=== PATIENT | female | born 1970 | race Caucasian/White ===

== ENCOUNTER 2017-02-04 10:18 | Inpatient (IN) | payer BC, OTHER ==
[2017-02-04] VITALS (12 sets, daily range): BP systolic 124–148; BP diastolic 66–95; PULSE 82–124; RESP 15–18; TEMP 97–97.9; O2SAT 95–100
[~2017-02-04] VITALS: Ht 170.2 cm; Wt 99.0 kg
[2017-02-04] MEDS ORDERED: SODIUM CHLORIDE 0.9% FLUSH 10 ML FLUSH IVF PRN ×2 (11:00→13:00)
[2017-02-04] MEDS ORDERED: SODIUM CHLOR 0.9% 1000 ML INJ 1,000 ML IV ONE (11:15)
[2017-02-04 11:30] LABS: AUTOMATED NEUTROPHIL # 4.3 TH/MM3 (1.8-7.7); BASOPHIL # 0.1 TH/MM3 (0-0.2); BASOPHIL % 1.1 % (0.0-2.0); EOSINOPHIL # 0.1 TH/MM3 (0-0.4); EOSINOPHIL % 1.1 % (0.0-4.0); HEMATOCRIT 36.5 % (35.0-46.0); LYMPH % 33.6 % (9.0-44.0); LYMPHOCYTE # 2.5 TH/MM3 (1.0-4.8); MEAN CELL VOLUME 95.1 FL (80.0-100.0); MEAN CORPUSCULAR HEMOGLOBIN 32.3 PG (27.0-34.0); NEUT % 57.2 % (16.0-70.0); PLATELET COUNT 270 TH/MM3 (150-450); RED BLOOD COUNT 3.83 MIL/MM3 (4.00-5.30); RED CELL DISTRIBUTION WIDTH 18.2 % (11.6-17.2); WHITE BLOOD COUNT 7.6 TH/MM3 (4.0-11.0)
--- NOTE | 2017-02-04 11:31 | PD ---
HPI Chief Complaint: OD/ Ingestion Time Seen by Provider: 11:02 Travel History International Travel<30 days: No Contact w/Intl Traveler<30days: No Traveled to known affect area: No History of Present Illness HPI 47-year-old female patient with history of suicidal attempts, presents to the ER today by EMS because she had taken 25 Tylenol PMs, 15 Librium, and an attempt to kill herself. Had drank alcohol as well. She has been [place] acted by PD, apparently has had previous attempts. She had stated that this was the only way she knew to help. She is currently fairly disoriented, not able to give any further history. Modifying Factors: None Associated Signs & Symptoms: Intentional overdose of Tylenol PM's in Librium Risk Factors: Previous suicidal attempts PFSH Past Medical History Medical History: Unable to Obtain Anxiety: Yes Depression: Yes Cancer: No Cardiovascular Problems: No Diminished Hearing: No Endocrine: No Genitourinary: No Immune Disorder: No Musculoskeletal: No Neurologic: No Psychiatric: Yes Reproductive: No Respiratory: No ?: Unknown Menopausal: Yes : 6 Para: 5 Miscarriage: 0 : 1 Past Surgical History Surgical History: Unable to Obtain Social History Alcohol Use: Yes (Daily - 2 bottles of wine) Tobacco Use: No Substance Use: Yes (alcohol) Allergies-Medications (Allergen,Severity, Reaction): Coded Allergies: No Known Allergies (Unverified Adverse Reaction, Unknown, 02/04/17) Reported Meds & Prescriptions Reported Meds & Active Scripts Active Active Prescriptions or Reported Medications Unobtainable Review of Systems ROS Limitations: Altered Mental Status Physical Exam Narrative GENERAL: Well-developed middle age female patient who is currently in moderate distress, disoriented, lethargic. SKIN: Focused skin assessment warm/dry. HEAD: Atraumatic. Normocephalic. EYES: Pupils equal and round, 2 mm and poorly reactive to light bilaterally. No scleral icterus. No injection or drainage. ENT: No nasal bleeding or discharge. Mucous membranes pink and moist. NECK: Trachea midline. No JVD. CARDIOVASCULAR: Regular rate and rhythm. No murmur appreciated. RESPIRATORY: No accessory muscle use. Clear to auscultation. Breath sounds equal bilaterally. GASTROINTESTINAL: Abdomen soft, non-tender, nondistended. Hepatic and splenic margins not palpable. MUSCULOSKELETAL: No obvious deformities. No clubbing. No cyanosis. No edema. NEUROLOGICAL: Lethargic. Not following commands. Slurred speech. PSYCHIATRIC: Lethargic; insight and judgment poor. Data Data Last Documented VS Vital Signs Date Time Temp Pulse Resp B/P (MAP) Pulse Ox O2 Delivery O2 Flow Rate FiO2 02/04/17 11:39 124 16 146/77 (100) 100 2.00 02/04/17 10:38 97.9 Orders Orders Electrocardiogram (02/04/17 10:57) Complete Blood Count With Diff (02/04/17 10:57) Comprehensive Metabolic Panel (02/04/17 10:57) Iv Access Insert/Monitor (02/04/17 10:57) Ecg Monitoring (02/04/17 10:57) Oximetry (02/04/17 10:57) Psych Screen (02/04/17 10:57) Sodium Chloride 0.9% Flush (Ns Flush) (02/04/17 11:00) Call Poison Control (02/04/17 10:57) Drug Screen, Random Urine (02/04/17 10:57) Alcohol (Ethanol) (02/04/17 10:57) Salicylates (Aspirin) (02/04/17 10:57) Tylenol (Acetaminophen) (02/04/17 10:57) Sodium Chlor 0.9% 1000 Ml Inj (Ns 1000 M (02/04/17 11:15) Prothrombin Time / Inr (Pt) (02/04/17 11:36) Act Partial Throm Time (Ptt) (02/04/17 11:36) Labs Laboratory Tests Test 02/04/17 11:00 02/04/17 12:05 White Blood Count 7.6 TH/MM3 Red Blood Count 3.83 MIL/MM3 Hemoglobin 12.4 GM/DL Hematocrit 36.5 % Mean Corpuscular Volume 95.1 FL Mean Corpuscular Hemoglobin 32.3 PG Mean Corpuscular Hemoglobin Concent 34.0 % Red Cell Distribution Width 18.2 % Platelet Count 270 TH/MM3 Mean Platelet Volume 7.2 FL Neutrophils (%) (Auto) 57.2 % Lymphocytes (%) (Auto) 33.6 % Monocytes (%) (Auto) 7.0 % Eosinophils (%) (Auto) 1.1 % Basophils (%) (Auto) 1.1 % Neutrophils # (Auto) 4.3 TH/MM3 Lymphocytes # (Auto) 2.5 TH/MM3 Monocytes # (Auto) 0.5 TH/MM3 Eosinophils # (Auto) 0.1 TH/MM3 Basophils # (Auto) 0.1 TH/MM3 CBC Comment AUTO DIFF Differential Comment AUTO DIFF CONFIRMED Blood Urea Nitrogen 10 MG/DL Creatinine 0.54 MG/DL Random Glucose 76 MG/DL Total Protein 7.6 GM/DL Albumin 3.1 GM/DL Calcium Level 7.6 MG/DL Alkaline Phosphatase 64 U/L Aspartate Amino Transf (AST/SGOT) 32 U/L Alanine Aminotransferase (ALT/SGPT) 34 U/L Total Bilirubin 0.3 MG/DL Sodium Level 137 MEQ/L Potassium Level 3.8 MEQ/L Chloride Level 108 MEQ/L Carbon Dioxide Level 18.0 MEQ/L Anion Gap 11 MEQ/L Estimat Glomerular Filtration Rate 120 ML/MIN Salicylates Level LESS THAN 1.7 MG/DL Urine Opiates Screen NEG Acetaminophen Level 87.5 MCG/ML Urine Barbiturates Screen NEG Urine Amphetamines Screen NEG Urine Benzodiazepines Screen NEG Urine Cocaine Screen NEG Urine Cannabinoids Screen NEG Ethyl Alcohol Level 289 MG/DL Prothrombin Time 10.2 SEC Prothromb Time International Ratio 1.0 RATIO Activated Partial Thromboplast Time 24.7 SEC MDM Medical Decision Making Medical Screen Exam Complete: Yes Emergency Medical Condition: Yes Medical Record Reviewed: Yes Interpretation(s) Laboratory Tests Test 02/04/17 11:00 02/04/17 12:05 Red Blood Count 3.83 MIL/MM3 (4.00-5.30) Red Cell Distribution Width 18.2 % (11.6-17.2) Albumin 3.1 GM/DL (3.4-5.0) Calcium Level 7.6 MG/DL (8.5-10.1) Chloride Level 108 MEQ/L (98-107) Carbon Dioxide Level 18.0 MEQ/L (21.0-32.0) Salicylates Level LESS THAN 1.7 MG/DL Acetaminophen Level 87.5 MCG/ML (10.0-30.0) Ethyl Alcohol Level 289 MG/DL (0-5) Differential Diagnosis Intentional overdose of Tylenol PM and Librium, alcohol use, rule out coingestions versus metabolic issues Narrative Course Lab work did not show significant metabolic issues. She has elevated alcohol levels. It is unclear what time she had taken the medications. Her Tylenol levels are elevated. Case was discussed with poison control and they will follow along. At this point, my plan would be to admit the patient for further treatment. Case was discussed with family practice resident service for admission. Diagnosis Primary Impression: Intentional overdose of drug in tablet form Admitting Information Admitting Physician Requests: Admit Scripts Unable to Obtain Active Prescriptions or Reported Meds Noam Jung MD Feb 04, 2017 11:31
[2017-02-04 11:38] LABS: HEMO FLAGS AUTO DIFF
[2017-02-04 11:41] LABS: ALCOHOL 289 MG/DL (0-5); ALT (GPT) 34 U/L (10-53); ANION GAP 11 MEQ/L (5-15); AST (GOT) 32 U/L (15-37); BLOOD UREA NITROGEN 10 MG/DL (7-18); CHLORIDE 108 MEQ/L (98-107); GLOMERULAR FILTRATION RATE 120 ML/MIN (>89); POTASSIUM 3.8 MEQ/L (3.5-5.1); SODIUM (NA) 137 MEQ/L (136-145)
[2017-02-04 11:42] LABS: ACETAMINOPHEN 87.5 MCG/ML (10.0-30.0); ALKALINE PHOSPHATASE 64 U/L (45-117); TOTAL BILIRUBIN ADULT 0.3 MG/DL (0.2-1.0)
[2017-02-04 12:08] LABS: SCAN/DIFF AUTO DIFF CONFIRMED
[2017-02-04 12:29] LABS: APTT (PATIENT) 24.7 SEC (24.3-30.1); PROTHROMBIN TIME - PATIENT 10.2 SEC (9.8-11.6)
[2017-02-04] MEDS ORDERED: ACETYLCYSTEINE INJ 15,000 MG in DEXTROSE 5% IN WATER INJ 200 ML IV SCH ×2 (13:00)
[2017-02-04] MEDS ORDERED: ACETYLCYSTEINE INJ 5,000 MG in DEXTROSE 5% IN WATE 500 ML INJ 500 ML IV SCH ×2 (14:00)
--- NOTE | 2017-02-04 14:09 | HHI.FPPN ---
Subjective Remarks Pt. seen and examined and discussed with the Med team. this is a 47 yo female who has hx of attempted suicides who reportedly drinks 2 bottles of wine daily. She apparently took Tylenol PM #25, librium and called the police for help. Evac was called and she was transported to [facility]. She is awake but unable to speak with us; when asked if she has pain she points to her head. Otherwise verbally nonresponsive although her eyes are open; she will shake or nod her head occasionally. Objective Vitals Vital Signs Date Time Temp Pulse Resp B/P (MAP) Pulse Ox O2 Delivery O2 Flow Rate FiO2 02/04/17 13:21 111 16 124/66 (85) 100 Nasal Cannula 2.00 02/04/17 11:39 124 16 146/77 (100) 100 2.00 02/04/17 10:38 97.9 111 15 148/95 (112) 95 Result Diagram: 02/04/17 1100 02/04/17 1100 Other Results Laboratory Tests Test 02/04/17 11:00 02/04/17 12:05 White Blood Count 7.6 TH/MM3 Red Blood Count 3.83 MIL/MM3 Hemoglobin 12.4 GM/DL Hematocrit 36.5 % Mean Corpuscular Volume 95.1 FL Mean Corpuscular Hemoglobin 32.3 PG Mean Corpuscular Hemoglobin Concent 34.0 % Red Cell Distribution Width 18.2 % Platelet Count 270 TH/MM3 Mean Platelet Volume 7.2 FL Neutrophils (%) (Auto) 57.2 % Lymphocytes (%) (Auto) 33.6 % Monocytes (%) (Auto) 7.0 % Eosinophils (%) (Auto) 1.1 % Basophils (%) (Auto) 1.1 % Neutrophils # (Auto) 4.3 TH/MM3 Lymphocytes # (Auto) 2.5 TH/MM3 Monocytes # (Auto) 0.5 TH/MM3 Eosinophils # (Auto) 0.1 TH/MM3 Basophils # (Auto) 0.1 TH/MM3 CBC Comment AUTO DIFF Differential Comment AUTO DIFF CONFIRMED Blood Urea Nitrogen 10 MG/DL Creatinine 0.54 MG/DL Random Glucose 76 MG/DL Total Protein 7.6 GM/DL Albumin 3.1 GM/DL Calcium Level 7.6 MG/DL Alkaline Phosphatase 64 U/L Aspartate Amino Transf (AST/SGOT) 32 U/L Alanine Aminotransferase (ALT/SGPT) 34 U/L Total Bilirubin 0.3 MG/DL Sodium Level 137 MEQ/L Potassium Level 3.8 MEQ/L Chloride Level 108 MEQ/L Carbon Dioxide Level 18.0 MEQ/L Anion Gap 11 MEQ/L Estimat Glomerular Filtration Rate 120 ML/MIN Salicylates Level LESS THAN 1.7 MG/DL Urine Opiates Screen NEG Acetaminophen Level 87.5 MCG/ML Urine Barbiturates Screen NEG Urine Amphetamines Screen NEG Urine Benzodiazepines Screen NEG Urine Cocaine Screen NEG Urine Cannabinoids Screen NEG Ethyl Alcohol Level 289 MG/DL Prothrombin Time 10.2 SEC Prothromb Time International Ratio 1.0 RATIO Activated Partial Thromboplast Time 24.7 SEC Imaging O. CONSTITUTIONAL/GEN: normally nourished, in NAD. Awake, eyes open, not responding verbally. EYES: conjunctiva normal, pupils equal but minimally responsive, sclerae nonicteric. ENT: Mouth and pharynx normal. NECK: no palpable mass LUNGS: clear A-P, respiratory effort is normal. CARDIOVASCULAR: RR without murmur or gallop. No significant edema. GI/ABD: BS +, palpable bladder vs uterus to just below umbilicus (pt. was recently incontinent of a large amount of urine). SKIN: color normal, no rashes noted. HEME/LYMPH: no bruising, petechia or significant adenopathy MUSC: Extremities are normal in appearance. PSYCH/MENTAL STATUS: Eyes open, nonverbal. A/P Assessment and Plan Repeat suicide attempt in a 47 yo female. See orders. Attending Attestation Patient seen and examined. Case reviewed and discussed with the resident team. Agree with plan of care as discussed with me and documented in the resident note. Archana Orozco MD Feb 04, 2017 14:09
[2017-02-04] MEDS ORDERED: NALOXONE HCL 0.4 MG/ML AMP IV PUSH PRN (14:15)
[2017-02-04] MEDS ORDERED: BISACODYL 10 MG SUPP RECTAL PRN (14:15)
[2017-02-04] MEDS ORDERED: MAGNESIUM HYDROXIDE SUSP 30 ML CUP PO PRN (14:15)
[2017-02-04] MEDS ORDERED: SENNOSIDES 8.6 MG TAB PO PRN (14:15)
[2017-02-04] MEDS ORDERED: SODIUM CHLORIDE 0.9% FLUSH 10 ML FLUSH IV FLUSH PRN (14:15)
[2017-02-04] MEDS ORDERED: LACTULOSE SYRUP 20 GM/30 ML CUP PO PRN (14:15)
--- NOTE | 2017-02-04 14:53 | HHI.HP ---
[facility] Service Family Medicine Primary Care Physician No Primary Care Physician Admission Diagnosis intentional overdose/alcohol intoxication/BA Diagnoses: International Travel<30 Days: No Contact w/Intl Traveler<30days: No Known Affected Area: No History of Present Illness 47 yr old F with history of adjustment disorder with mixed features and previous suicidal attempt, presents to the ED via EMS for drug overdose. History is limited due to patient's current condition. She is moderately disoriented and unable to answer any questions. She is able to tell me her name and answers a few yes/no questions. Per ED note, patient took 25 Tylenol PMs, 15 Librium, and drank alcohol (1-2bottles of wine) in an attempt to kill herself. She called 911 after taking these meds and wanted to receive help. She endorses some abdominal pain. Will attempt to clarify history tomorrow when patient is fully awake and alert. (Daniela Dorman MD R1) Review of Systems Other Limited due to patient's condition (Daniela Dorman MD R1) Past Family Social History Past Medical History Adjustment disorder w/ mixed features Suicide attempt in 2012 Past Surgical History None (Daniela Dorman MD R1) Allergies: Coded Allergies: No Known Allergies (Unverified Allergy, Unknown, 02/04/17) Family History Unable to obtain Social History Unable to obtain (Daniela Dorman MD R1) Physical Exam Vital Signs Vital Signs Date Time Temp Pulse Resp B/P (MAP) Pulse Ox O2 Delivery O2 Flow Rate FiO2 02/04/17 13:21 111 16 124/66 (85) 100 Nasal Cannula 2.00 02/04/17 11:39 124 16 146/77 (100) 100 2.00 02/04/17 10:38 97.9 111 15 148/95 (112) 95 Physical Exam GENERAL: lying uncomfortably in bed, lethargic, in NAD SKIN: No rashes, ecchymoses or lesions. Cool and dry. HEAD: Atraumatic. Normocephalic. No temporal or scalp tenderness. EYES: PERRLA. Extraocular motions intact. No scleral icterus. No injection or drainage. ENT: Nose without bleeding, purulent drainage or septal hematoma. Throat without erythema, tonsillar hypertrophy or exudate. Uvula midline. Airway patent. NECK: Trachea midline. No JVD or lymphadenopathy. Supple, nontender, no meningeal signs. CARDIOVASCULAR: Regular rate and rhythm without murmurs, gallops, or rubs. RESPIRATORY: Clear to auscultation. Breath sounds equal bilaterally. No wheezes , rales, or rhonchi. GASTROINTESTINAL: soft, tenderness upon palpation in lower quadrant, bladder full, non-distended, +BS MUSCULOSKELETAL: Extremities without clubbing, cyanosis, or edema. No joint tenderness, effusion, or edema noted. No calf tenderness. Negative Homans sign bilaterally. NEUROLOGICAL: Disoriented, awake, unable to follow directions, no focal deficits Laboratory Laboratory Tests Test 02/04/17 11:00 02/04/17 12:05 White Blood Count 7.6 Red Blood Count 3.83 Hemoglobin 12.4 Hematocrit 36.5 Mean Corpuscular Volume 95.1 Mean Corpuscular Hemoglobin 32.3 Mean Corpuscular Hemoglobin Concent 34.0 Red Cell Distribution Width 18.2 Platelet Count 270 Mean Platelet Volume 7.2 Neutrophils (%) (Auto) 57.2 Lymphocytes (%) (Auto) 33.6 Monocytes (%) (Auto) 7.0 Eosinophils (%) (Auto) 1.1 Basophils (%) (Auto) 1.1 Neutrophils # (Auto) 4.3 Lymphocytes # (Auto) 2.5 Monocytes # (Auto) 0.5 Eosinophils # (Auto) 0.1 Basophils # (Auto) 0.1 CBC Comment AUTO DIFF Differential Comment AUTO DIFF CONFIRMED Blood Urea Nitrogen 10 Creatinine 0.54 Random Glucose 76 Total Protein 7.6 Albumin 3.1 Calcium Level 7.6 Alkaline Phosphatase 64 Aspartate Amino Transf (AST/SGOT) 32 Alanine Aminotransferase (ALT/SGPT) 34 Total Bilirubin 0.3 Sodium Level 137 Potassium Level 3.8 Chloride Level 108 Carbon Dioxide Level 18.0 Anion Gap 11 Estimat Glomerular Filtration Rate 120 Salicylates Level LESS THAN 1.7 Urine Opiates Screen NEG Acetaminophen Level 87.5 Urine Barbiturates Screen NEG Urine Amphetamines Screen NEG Urine Benzodiazepines Screen NEG Urine Cocaine Screen NEG Urine Cannabinoids Screen NEG Ethyl Alcohol Level 289 Prothrombin Time 10.2 Prothromb Time International Ratio 1.0 Activated Partial Thromboplast Time 24.7 (Daniela Dorman MD R1) Result Diagram: 02/04/17 1100 02/04/17 1100 Caprini VTE Risk Assessment Caprini VTE Risk Assessment: No/Low Risk (score <= 1) Caprini Risk Assessment Model Point Value = 1 Point Value = 2 Point Value = 3 Point Value = 5 Age 41-60 Minor surgery BMI > 25 kg/m2 Swollen legs Varicose veins or History of unexplained or recurrent spontaneous Oral contraceptives or hormone replacement Sepsis (< 1 month) Serious lung disease, including pneumonia (< 1 month) Abnormal pulmonary function Acute myocardial infarction Congestive heart failure (< 1 month) History of inflammatory bowel disease Medical patient at bed rest Age 61-74 Arthroscopic surgery Major open surgery (> 45 min) Laparoscopic surgery (> 45 min) Malignancy Confined to bed (> 72 hours) Immobilizing plaster cast Central venous access Age >= 75 History of VTE Family history of VTE Factor V Leiden Prothrombin [id number] Lupus anticoagulant Anticardiolipin antibodies Elevated serum homocysteine Heparin-induced thrombocytopenia Other congenital or acquired thrombophilia Stroke (< 1 month) Elective arthroplasty Hip, pelvis, or leg fracture Acute spinal cord injury (< 1 month) Prophylaxis Regimen Total Risk Factor Score Risk Level Prophylaxis Regimen 0-1 Low Early ambulation 2 Moderate Order ONE of the following: *Sequential Compression Device (SCD) *Heparin 5000 units SQ BID 3-4 Higher Order ONE of the following medications: *Heparin 5000 units SQ TID *Enoxaparin/Lovenox 40 mg SQ daily (WT < 150 kg, CrCl > 30 mL/min) *Enoxaparin/Lovenox 30 mg SQ daily (WT < 150 kg, CrCl > 10-29 mL/min) *Enoxaparin/Lovenox 30 mg SQ BID (WT < 150 kg, CrCl > 30 mL/min) AND/OR *Sequential Compression Device (SCD) 5 or more Highest Order ONE of the following medications: *Heparin 5000 units SQ TID (Preferred with Epidurals) *Enoxaparin/Lovenox 40 mg SQ daily (WT < 150 kg, CrCl > 30 mL/min) *Enoxaparin/Lovenox 30 mg SQ daily (WT < 150 kg, CrCl > 10-29 mL/min) *Enoxaparin/Lovenox 30 mg SQ BID (WT < 150 kg, CrCl > 30 mL/min) AND *Sequential Compression Device (SCD) (Daniela Dorman MD R1) Assessment and Plan Assessment and Plan 47 yr old F w/ history of adjustment disorder and previous suicide attempt in 2013, admitted for drug overdose and repeat suicide attempt. Code Status Full Code Discussed Condition With Dr. Orozco and Dr. Thornton (Daniela Dorman MD R1) Attending Attestation Patient seen and examined. Case reviewed and discussed with the resident team. Agree with plan of care as discussed with me and documented in the resident note. (Archana Orozco MD) Problem List: (1) Intentional overdose of drug in tablet form ICD Codes: T50.902A - Poisoning by unspecified drugs, medicaments and biological substances, intentional self-harm, initialencounter Status: Acute Plan: Intentional drug overdose with 25 Tylenol PMs, 15 Librium, and alcohol (1 -2 bottle of wine) * ED physician contacted poison control, will trend EKGs q2h and tylenol q2h * EKGs x2 revealed sinus tachycardia * Acetaminophen level x1 87.5 * UDS negative for opiates, amphetamines, barbiturates, benzos, cocaine, and cannabinoids * test negative * Psych consulted, appreciate recs (2) Suicide attempt ICD Codes: T14.91XA - Suicide attempt, initial encounter Plan: Please see above for plan (3) Nutrition, metabolism, and development symptoms ICD Codes: R63.8 - Other symptoms and signs concerning food and fluid intake Plan: Diet: NPO due to aspiration risk Fluids: 140mls/hr MIVF Other: vitals q4h, monitor I & Os, cardiac telemetry DVT ppx: lovenox 40mg (Daniela Dorman MD R1) Daniela Dorman MD R1 Feb 04, 2017 14:53 Archana Orozco MD Feb 04, 2017 18:42
[2017-02-04] MEDS ORDERED: SODIUM CHLOR 0.9% 1000 ML INJ 1,000 ML IV SCH (16:04)
[2017-02-04] MEDS ORDERED: ACETYLCYSTEINE INJ 10,000 MG in DEXTROSE 5% IN WATE 1000ML INJ 1,000 ML IV SCH ×2 (18:00)
[2017-02-04] MEDS: ENOXAPARIN SODIUM 40 MG/0.4 ML SYRINGE SQ SCH (18:32)
[2017-02-04] MEDS: SODIUM CHLORIDE 0.9% FLUSH 10 ML FLUSH IV FLUSH SCH (21:00)
[2017-02-04] MEDS: DOCUSATE SODIUM 50 MG/SENNA 8.6 MG TAB PO SCH (21:00)
[2017-02-05] VITALS (23 sets, daily range): BP systolic 133–159; BP diastolic 80–95; PULSE 84–118; RESP 18–20; TEMP 97.7–99.3; O2SAT 97–99
[2017-02-05] MEDS ORDERED: FLUMAZENIL 0.5 MG/5 ML VIAL IV PUSH PRN (07:00)
[2017-02-05] MEDS ORDERED: LORazepam 2 MG TAB PO PRN (07:00)
[2017-02-05] MEDS ORDERED: LORazepam 1 MG TAB PO PRN (07:00)
[2017-02-05] MEDS ORDERED: LORazepam 2 MG/ML VIAL IV PUSH PRN ×4 (07:00)
[2017-02-05 08:53] LABS: BASOPHIL % 0.5 % (0.0-2.0); EOSINOPHIL # 0.2 TH/MM3 (0-0.4); EOSINOPHIL % 2.3 % (0.0-4.0); HEMATOCRIT 38.6 % (35.0-46.0); HEMO FLAGS DIFF FINAL; LYMPH % 20.1 % (9.0-44.0); LYMPHOCYTE # 1.9 TH/MM3 (1.0-4.8); MEAN CELL VOLUME 93.6 FL (80.0-100.0); MEAN CORPUSCULAR HEMOGLOBIN 31.7 PG (27.0-34.0); MEAN CORPUSCULAR HGB CONC 33.9 % (32.0-36.0); MONO % 4.4 % (0.0-8.0); NEUT % 72.7 % (16.0-70.0); PLATELET COUNT 253 TH/MM3 (150-450); RED BLOOD COUNT 4.13 MIL/MM3 (4.00-5.30); RED CELL DISTRIBUTION WIDTH 18.3 % (11.6-17.2); WHITE BLOOD COUNT 9.6 TH/MM3 (4.0-11.0)
[2017-02-05 09:19] LABS: ANION GAP 11 MEQ/L (5-15); AST (GOT) 21 U/L (15-37); BICARBONATE 19.3 MEQ/L (21.0-32.0); BLOOD UREA NITROGEN 9 MG/DL (7-18); CHLORIDE 106 MEQ/L (98-107); GLOMERULAR FILTRATION RATE 85 ML/MIN (>89); POTASSIUM 3.1 MEQ/L (3.5-5.1); SODIUM (NA) 136 MEQ/L (136-145)
[2017-02-05 09:21] LABS: ALT (GPT) 28 U/L (10-53)
[2017-02-05 09:22] LABS: ALKALINE PHOSPHATASE 61 U/L (45-117); TOTAL BILIRUBIN ADULT 1.1 MG/DL (0.2-1.0)
[2017-02-05] MEDS ORDERED: IBUPROFEN 400 MG TAB PO PRN (12:15)
[2017-02-05] MEDS: DOCUSATE SODIUM 50 MG/SENNA 8.6 MG TAB PO SCH ×2 (12:18→20:44)
[2017-02-05] MEDS: SODIUM CHLORIDE 0.9% FLUSH 10 ML FLUSH IV FLUSH SCH ×2 (12:18→20:45)
[2017-02-05] MEDS: amLODIPine BESYLATE 5 MG TAB PO SCH (12:18)
[2017-02-05] MEDS: PANTOPRAZOLE SOD 40 MG DELAYED RELEASE TAB PO SCH (12:18)
[2017-02-05] MEDS ORDERED: POTASSIUM CHLORIDE 10 MEQ CONTROLLED RELEASE TAB PO ONE (12:30)
--- NOTE | 2017-02-05 12:33 | HHI.FPPN ---
Subjective Remarks No acute events overnight. Patient is lying in bed, more alert and awake. Oriented to place and time. Patient is complaining of headache this morning. She does not have abdominal pain. She denies CP, SOB, and N/V. She reports that she overdose to get help and attention. She did not want to commit suicide. She was asking about more resources to help with her depression. Objective Vitals Vital Signs Date Time Temp Pulse Resp B/P (MAP) Pulse Ox O2 Delivery O2 Flow Rate FiO2 02/05/17 06:19 97 02/05/17 05:00 86 02/05/17 04:00 96 02/05/17 03:00 94 02/05/17 03:00 98.1 103 18 152/95 (114) 97 02/05/17 02:00 94 02/05/17 01:00 90 02/05/17 00:00 84 02/04/17 23:00 82 02/04/17 23:00 97.7 97 18 148/87 (107) 97 02/04/17 22:00 84 02/04/17 21:00 84 02/04/17 20:35 97.9 87 18 148/90 (109) 100 02/04/17 20:00 82 02/04/17 19:00 94 02/04/17 18:34 88 18 125/80 (95) 02/04/17 17:24 97.0 91 18 145/89 (107) 02/04/17 16:53 02/04/17 16:07 86 16 136/86 (103) 97 Nasal Cannula 2.00 02/04/17 13:21 111 16 124/66 (85) 100 Nasal Cannula 2.00 I/O 02/04/17 02/04/17 02/04/17 02/05/17 02/05/17 02/05/17 07:00 15:00 23:00 07:00 15:00 23:00 Intake Total 0 ml 750 ml Output Total 400 ml Balance -400 ml 0 ml 750 ml Intake Oral 0 ml IV Total 750 ml Output Urine Total 400 ml # Voids 3 2 Result Diagram: 02/05/17 0753 02/05/17 0753 Objective Remarks GENERAL: lying in bed, alert and awake, flat affect, in NAD SKIN: Warm and dry. HEAD: Normocephalic. EYES: No scleral icterus. No injection or drainage. NECK: Supple, trachea midline. No JVD or lymphadenopathy. CARDIOVASCULAR: Regular rate and rhythm without murmurs, gallops, or rubs. RESPIRATORY: Breath sounds equal bilaterally. No accessory muscle use. GASTROINTESTINAL: Abdomen soft, non-tender, nondistended. positive +BS EXTREMITIES: No cyanosis, or edema. NEUROLOGICAL: Awake, alert, and oriented x 3. Non-focal. A/P Assessment and Plan 47 yr old F w/ history of adjustment disorder and previous suicide attempt in 2013, admitted for drug overdose and repeat suicide attempt. Problem List: (1) Intentional overdose of drug in tablet form ICD Codes: T50.902A - Poisoning by unspecified drugs, medicaments and biological substances, intentional self-harm, initialencounter Status: Acute Plan: Intentional drug overdose with 25 Tylenol PMs, 15 Librium, and alcohol (1 -2 bottle of wine) * ED physician contacted poison control * Acetaminophen levels trending down, 63.8, 34.7, less than 2.0 * EKGs x2 revealed sinus tachycardia * UDS negative for opiates, amphetamines, barbiturates, benzos, cocaine, and cannabinoids * test negative * Psych consulted, appreciate recs (2) Suicide attempt ICD Codes: T14.91XA - Suicide attempt, initial encounter Plan: Please see above for plan (3) HTN (hypertension) ICD Codes: I10 - Essential (primary) hypertension Plan: Patient reports taking amlodipine 5mg at home, continue (4) Nutrition, metabolism, and development symptoms ICD Codes: R63.8 - Other symptoms and signs concerning food and fluid intake Plan: Diet: Regular diet Fluids: not indicated at this time Electrolytes: monitor and replace as needed Other: vitals q4h, monitor I & Os,cardiac telemetry DVT ppx: lovenox 40mg Daniela Dorman MD R1 Feb 05, 2017 12:33
--- NOTE | 2017-02-05 15:42 | PD.PSY.CON ---
Provisional Diagnosis Admission Date Feb 04, 2017 at 12:57 [place]. Adjustment disorder with depressed mood History of Present Illness Service Psychiatry Consult Requested By Attending physician Reason for Consult Status post overdose Primary Care Physician No Primary Care Physician HPI Patient with multiyear history of depression and alcohol abuse. Patient has had periods of sobriety mixed with periods of alcohol binging. She states she overdosed on Tylenol, Librium, etc. because she wanted help. She denies this as a suicide attempt at this time. This physician spoke with the patient and her . Apparently she has a history of overdose attempts in the past. At this time, she is forward thinking and wanting help with alcoholism. Review of Systems Except as stated in HPI: all other systems reviewed are Neg Past Family Social History Coded Allergies: No Known Allergies (Unverified Allergy, Unknown, 02/04/17) Unable to Obtain Active Prescriptions or Reported Meds Current Medications Medications (Trade) Dose Ordered Sig/Warren Route Start Time Stop Time Status Last Admin (NS Flush) 2 ml UNSCH PRN IVF 02/04/17 11:00 (NS Flush) 2 ml UNSCH PRN IVF 02/04/17 13:00 (NS Flush) 2 ml UNSCH PRN IV FLUSH 02/04/17 14:15 (NS Flush) 2 ml BID IV FLUSH 02/04/17 14:15 02/05/17 12:18 (Lovenox Inj) 40 mg Q24H SQ 02/04/17 16:00 02/04/17 18:32 (Narcan Inj) 0.4 mg UNSCH PRN IV PUSH 02/04/17 14:15 (Arti-Colace) 1 tab BID PO 02/04/17 21:00 02/05/17 12:18 (Milk Of Magnesia Liq) 30 ml Q12H PRN PO 02/04/17 14:15 (Senokot) 17.2 mg Q12H PRN PO 02/04/17 14:15 (Dulcolax Supp) 10 mg DAILY PRN RECTAL 02/04/17 14:15 (Lactulose Liq) 30 ml DAILY PRN PO 02/04/17 14:15 Sodium Chloride 1,000 ml @ 140 mls/hr Q7H9M IV 02/04/17 16:04 02/04/17 21:02 (Romazicon Inj) 0.2 mg Q1M PRN IV PUSH 02/05/17 07:00 (Ativan) 1 mg Q4H PRN PO 02/05/17 07:00 (Ativan Inj) 1 mg Q4H PRN IV PUSH 02/05/17 07:00 (Ativan) 2 mg Q2H PRN PO 02/05/17 07:00 (Ativan Inj) 2 mg Q2H PRN IV PUSH 02/05/17 07:00 (Ativan Inj) 2 mg Q1H PRN IV PUSH 02/05/17 07:00 (Ativan Inj) 2 mg Q15M PRN IV PUSH 02/05/17 07:00 (Protonix) 40 mg DAILY PO 02/05/17 11:15 02/05/17 12:18 (Norvasc) 5 mg DAILY PO 02/05/17 12:00 02/05/17 12:18 (Motrin) 400 mg Q6H PRN PO 02/05/17 12:15 02/05/17 12:29 Family Psych History Positive for alcoholism and depression. Social History . supportive. recognizes has a problem but is not forceful regarding her alcohol abuse and states "one of these times he have to stop". Patient's Strengths (min. 2) Verbal and has family support. Physical Exam Vital Signs Vital Signs Date Time Temp Pulse Resp B/P (MAP) Pulse Ox O2 Delivery O2 Flow Rate FiO2 02/05/17 11:00 97 02/05/17 05:00 86 02/05/17 03:00 98.1 18 152/95 (114) 02/04/17 16:07 Nasal Cannula 2.00 I/O 02/05/17 02/05/17 02/06/17 08:00 16:00 00:00 Intake Total 0 ml 750 ml Balance 0 ml 750 ml Lab Results Test 02/04/17 17:27 02/04/17 20:28 02/05/17 07:53 Acetaminophen Level 63.8 MCG/ML 34.7 MCG/ML LESS THAN 2.0 MCG/ML White Blood Count 9.6 TH/MM3 Red Blood Count 4.13 MIL/MM3 Hemoglobin 13.1 GM/DL Hematocrit 38.6 % Mean Corpuscular Volume 93.6 FL Mean Corpuscular Hemoglobin 31.7 PG Mean Corpuscular Hemoglobin Concent 33.9 % Red Cell Distribution Width 18.3 % Platelet Count 253 TH/MM3 Mean Platelet Volume 7.3 FL Neutrophils (%) (Auto) 72.7 % Lymphocytes (%) (Auto) 20.1 % Monocytes (%) (Auto) 4.4 % Eosinophils (%) (Auto) 2.3 % Basophils (%) (Auto) 0.5 % Neutrophils # (Auto) 7.0 TH/MM3 Lymphocytes # (Auto) 1.9 TH/MM3 Monocytes # (Auto) 0.4 TH/MM3 Eosinophils # (Auto) 0.2 TH/MM3 Basophils # (Auto) 0.0 TH/MM3 CBC Comment DIFF FINAL Differential Comment Blood Urea Nitrogen 9 MG/DL Creatinine 0.73 MG/DL Random Glucose 86 MG/DL Total Protein 7.4 GM/DL Albumin 2.9 GM/DL Calcium Level 7.9 MG/DL Alkaline Phosphatase 61 U/L Aspartate Amino Transf (AST/SGOT) 21 U/L Alanine Aminotransferase (ALT/SGPT) 28 U/L Total Bilirubin 1.1 MG/DL Sodium Level 136 MEQ/L Potassium Level 3.1 MEQ/L Chloride Level 106 MEQ/L Carbon Dioxide Level 19.3 MEQ/L Anion Gap 11 MEQ/L Estimat Glomerular Filtration Rate 85 ML/MIN Mental Status Examination Appearance: Appropriate Consciousness: Alert Orientation: x4 Motor Activity: Normal gait Speech: Unremarkable Language: Adequate Fund of Knowledge: Adequate Attention and Concentration: Adequate Memory: Unremarkable Mood: Sad Affect: Sad Thought Process & Associations: Intact Thought Content: Appropriate Hallucination Type: None Delusion Type: None Suicidal Ideation: No Suicidal Plan: No Suicidal Intention: No Homicidal Ideation: No Homicidal Plan: No Homicidal Intention: No Insight: Adequate Judgment: Adequate Assessment & Plan Problem List: (1) Adjustment disorder with depressed mood ICD Codes: F43.21 - Adjustment disorder with depressed mood (2) Alcohol abuse ICD Codes: F10.10 - Alcohol abuse, uncomplicated Assessment & Plan Estimated LOS: days this physician recommends detox and rehabilitation before starting antidepressant medicines. Best program in this physician's opinion is [facility], associated with the [facility] in [facility]. Second program is "[facility]" in [facility]. This physician asked both patient and her about discontinuing the Parham act and the sitter and both agree. This physician will leave an order for case management to help with detox/rehabilitation placement. Mal Escalera MD 3, 2017 15:42
[2017-02-05] MEDS: ENOXAPARIN SODIUM 40 MG/0.4 ML SYRINGE SQ SCH (18:35)
--- NOTE | 2017-02-05 22:43 | EKG ---
Date Performed: 02/04/2017 Time Performed: 16:30:55 PTAGE: 47 years EKG: Sinus rhythm NORMAL ECG NO PREVIOUS TRACING DOCTOR: Chandana Nagel Interpretating Date/Time 02/05/2017 22:41:46
--- NOTE | 2017-02-05 22:48 | EKG ---
Date Performed: 02/04/2017 Time Performed: 13:20:13 PTAGE: 47 years EKG: SINUS TACHYCARDIA ABNORMAL RHYTHM ECG PREVIOUS TRACING : 05/14/2012 08.40 Compared to prior tracing no significant change DOCTOR: Chandana Nagel Interpretating Date/Time 02/05/2017 22:46:47
--- NOTE | 2017-02-05 22:54 | EKG ---
Date Performed: 02/04/2017 Time Performed: 10:49:57 PTAGE: 47 years EKG: SINUS TACHYCARDIA ABNORMAL RHYTHM ECG NO PREVIOUS TRACING DOCTOR: Chandana Nagel Interpretating Date/Time 02/05/2017 22:54:15
[2017-02-06] VITALS (10 sets, daily range): BP systolic 142–151; BP diastolic 84–98; PULSE 86–98; RESP 18; TEMP 98–99; O2SAT 95–99
[2017-02-06 06:50] LABS: BICARBONATE 21.6 MEQ/L (21.0-32.0); POTASSIUM 3.4 MEQ/L (3.5-5.1)
[2017-02-06] MEDS ORDERED: POTASSIUM CHLORIDE 10 MEQ CONTROLLED RELEASE TAB PO ONE (08:00)
[2017-02-06] MEDS: amLODIPine BESYLATE 5 MG TAB PO SCH (08:27)
[2017-02-06] MEDS: DOCUSATE SODIUM 50 MG/SENNA 8.6 MG TAB PO SCH (08:27)
[2017-02-06] MEDS: PANTOPRAZOLE SOD 40 MG DELAYED RELEASE TAB PO SCH (08:27)
[2017-02-06] MEDS: SODIUM CHLORIDE 0.9% FLUSH 10 ML FLUSH IV FLUSH SCH (08:28)
--- NOTE | 2017-02-06 08:53 | HHI.FPPN ---
Subjective Remarks No acute events overnight. Afebrile, vitals stable. Patient seen and examined this morning. She states she is doing well overall. She specifically denies fevers, chest pain , shortness of breath, cough, pain elsewhere. She denies tremors, diaphoresis, anxiety, blurry vision. She states she is motivated to follow through with an alcohol rehabilitation program after being discharged. She otherwise does not have any complaints or concerns. (Desmond Thornton MD R2) Objective Vitals Vital Signs Date Time Temp Pulse Resp B/P (MAP) Pulse Ox O2 Delivery O2 Flow Rate FiO2 02/06/17 07:30 99 21 02/06/17 06:30 87 02/06/17 05:00 88 02/06/17 04:00 86 02/06/17 03:00 98.0 86 18 142/84 (103) 99 02/06/17 03:00 87 02/06/17 02:00 88 02/06/17 01:00 92 02/06/17 00:00 92 02/05/17 23:00 89 02/05/17 23:00 98.1 90 18 133/80 (97) 98 02/05/17 22:00 96 02/05/17 21:00 96 02/05/17 20:00 97.7 104 18 143/94 (110) 98 02/05/17 20:00 118 02/05/17 19:00 114 02/05/17 18:00 102 02/05/17 16:00 112 02/05/17 16:00 98.9 112 20 159/94 (115) 99 02/05/17 15:00 108 02/05/17 14:00 110 02/05/17 13:00 112 02/05/17 12:00 106 02/05/17 12:00 99.3 104 20 148/95 (112) 98 02/05/17 11:00 97 02/05/17 11:00 106 02/05/17 10:00 110 02/05/17 09:00 104 I/O 02/05/17 02/05/17 02/05/17 02/06/17 02/06/17 02/06/17 07:00 15:00 23:00 07:00 15:00 23:00 Intake Total 0 ml 750 ml 920 ml 480 ml Balance 0 ml 750 ml 920 ml 480 ml Intake Oral 0 ml 720 ml 480 ml IV Total 750 ml 200 ml # Voids 2 3 2 # Bowel Movements 0 (Desmond Thornton MD R2) Result Diagram: 02/05/17 0753 02/06/17 0516 Objective Remarks GENERAL: lying in bed, alert and awake, flat affect, in NAD SKIN: Warm and dry. HEAD: Normocephalic. EYES: No scleral icterus. No injection or drainage. NECK: Supple, trachea midline. No JVD or lymphadenopathy. CARDIOVASCULAR: Regular rate and rhythm without murmurs, gallops, or rubs. RESPIRATORY: Breath sounds equal bilaterally, no w/r/r. No accessory muscle use. GASTROINTESTINAL: Abdomen soft, non-tender, nondistended. EXTREMITIES: No cyanosis, or edema. NEUROLOGICAL: Awake, alert, and oriented x 3. Non-focal. (Desmond Thornton MD R2) A/P Assessment and Plan 47 yr old F w/ history of adjustment disorder and previous suicide attempt in 2012, admitted for drug overdose and repeat suicide attempt. Discharge Planning Stable for discharge home today Spoke with case management, assisting with patient following through with alcohol abuse rehabilitation/detox program (Desmond Thornton MD R2) Attending Attestation Patient seen and examined. Case reviewed and discussed with the resident team. Agree with plan of care as discussed with me and documented in the resident note. (Archana Orozco MD) Problem List: (1) Intentional overdose of drug in tablet form ICD Codes: T50.902A - Poisoning by unspecified drugs, medicaments and biological substances, intentional self-harm, initialencounter Status: Acute Plan: Intentional drug overdose with 25 Tylenol PMs, 15 Librium, and alcohol Acetaminophen levels trending down, 63.8, 34.7, less than 2.0 EKGs x2 revealed sinus tachycardia UDS negative for opiates, amphetamines, barbiturates, benzos, cocaine, and cannabinoids test negative Psych consulted, appreciate recs, Parham act lifted CIWA scores all 1-2 No si/sxs of significant etoh withdrawal Case management consulted for alcohol detox/rehabilitation inpatient treatment after hospital discharge, appreciate assistance (2) Suicide attempt ICD Codes: T14.91XA - Suicide attempt, initial encounter Plan: Plan as above (3) HTN (hypertension) ICD Codes: I10 - Essential (primary) hypertension Plan: Continue amlodipine 5 mg po daily (4) Nutrition, metabolism, and development symptoms ICD Codes: R63.8 - Other symptoms and signs concerning food and fluid intake Plan: Diet: Regular Fluids: not indicated Electrolytes: K+, replete with 20 mEq orally (Desmond Thornton MD R2) Desmond Thornton MD R2 Feb 06, 2017 08:53 Archana Orozco MD Feb 06, 2017 15:05
--- NOTE | 2017-02-06 10:45 | HHI.DCPOC ---
Discharge Care Plan Diagnosis: (1) Intentional overdose of drug in tablet form (2) Adjustment disorder with depressed mood (3) HTN (hypertension) (4) Alcohol abuse Goals to Promote Your Health * To prevent worsening of your condition and complications, follow up with a primary care physician after hospital discharge and attend an alcohol abuse counseling program. Directions to Meet Your Goals Take your medications as prescribed Follow your dietary instruction Follow activity as directed Keep your appointments as scheduled Take your immunizations and boosters as scheduled If your symptoms worsen call your PCP, if no PCP go to Urgent Care Center or Emergency Room Smoking is Dangerous to Your Health. Avoid second hand smoke Call the 24-hour hour crisis hotline for domestic abuse at Desmond Thornton MD R2 Feb 06, 2017 10:45
[2017-02-06] MEDS ORDERED: AMLO5 PO (10:46)
--- NOTE | 2017-02-06 14:32 | HHI.DS ---
Discharge Summary Admission Date Feb 05, 2017 at 15:13 Discharge Date: Feb 06, 2017 Admitting Diagnosis intentional overdose/alcohol intoxication/BA (1) Intentional overdose of drug in tablet form Diagnosis: Principal Plan: Intentional drug overdose with 25 Tylenol PMs, 15 Librium, and alcohol Acetaminophen levels trending down, 63.8, 34.7, less than 2.0 EKGs x2 revealed sinus tachycardia UDS negative for opiates, amphetamines, barbiturates, benzos, cocaine, and cannabinoids test negative Psych consulted, appreciate recs, Parham act lifted CIWA scores all 1-2 No si/sxs of significant etoh withdrawal Case management consulted for alcohol detox/rehabilitation inpatient treatment after hospital discharge, appreciate assistance ICD Codes: T50.902A - Poisoning by unspecified drugs, medicaments and biological substances, intentional self-harm, initialencounter Status: Acute (2) Suicide attempt Diagnosis: Principal Plan: Plan as above ICD Codes: T14.91XA - Suicide attempt, initial encounter (3) HTN (hypertension) Diagnosis: Secondary Plan: Continue amlodipine 5 mg po daily ICD Codes: I10 - Essential (primary) hypertension (4) Nutrition, metabolism, and development symptoms Diagnosis: Secondary Plan: Diet: Regular Fluids: not indicated Electrolytes: K+, replete with 20 mEq orally ICD Codes: R63.8 - Other symptoms and signs concerning food and fluid intake Consultants Psychiatry Case management Brief History 47 yr old F with history of adjustment disorder with mixed features and previous suicidal attempt, presents to the ED via EMS for drug overdose. History is limited due to patient's current condition. She is moderately disoriented and unable to answer any questions. She is able to tell me her name and answers a few yes/no questions. Per ED note, patient took 25 Tylenol PMs, 15 Librium, and drank alcohol (1-2bottles of wine) in an attempt to kill herself. She called 911 after taking these meds and wanted to receive help. She endorses some abdominal pain. Will attempt to clarify history tomorrow when patient is fully awake and alert. CBC/BMP: 02/05/17 0753 02/06/17 0516 Significant Findings Laboratory Tests Test 02/04/17 11:00 02/04/17 12:05 02/04/17 17:27 02/04/17 20:28 Red Blood Count 3.83 MIL/MM3 (4.00-5.30) Red Cell Distribution Width 18.2 % (11.6-17.2) Albumin 3.1 GM/DL (3.4-5.0) Calcium Level 7.6 MG/DL (8.5-10.1) Chloride Level 108 MEQ/L (98-107) Carbon Dioxide Level 18.0 MEQ/L (21.0-32.0) Salicylates Level LESS THAN 1.7 MG/DL Acetaminophen Level 87.5 MCG/ML (10.0-30.0) 63.8 MCG/ML (10.0-30.0) 34.7 MCG/ML (10.0-30.0) Ethyl Alcohol Level 289 MG/DL (0-5) Test 02/05/17 07:53 02/06/17 05:16 Red Cell Distribution Width 18.3 % (11.6-17.2) Neutrophils (%) (Auto) 72.7 % (16.0-70.0) Albumin 2.9 GM/DL (3.4-5.0) Calcium Level 7.9 MG/DL (8.5-10.1) 8.4 MG/DL (8.5-10.1) Total Bilirubin 1.1 MG/DL (0.2-1.0) Potassium Level 3.1 MEQ/L (3.5-5.1) 3.4 MEQ/L (3.5-5.1) Carbon Dioxide Level 19.3 MEQ/L (21.0-32.0) Estimat Glomerular Filtration Rate 85 ML/MIN (>89) Acetaminophen Level LESS THAN 2.0 MCG/ML Chloride Level 108 MEQ/L (98-107) PE at Discharge GENERAL: lying in bed, alert and awake, flat affect, in NAD SKIN: Warm and dry. HEAD: Normocephalic. EYES: No scleral icterus. No injection or drainage. NECK: Supple, trachea midline. No JVD or lymphadenopathy. CARDIOVASCULAR: Regular rate and rhythm without murmurs, gallops, or rubs. RESPIRATORY: Breath sounds equal bilaterally, no w/r/r. No accessory muscle use. GASTROINTESTINAL: Abdomen soft, non-tender, nondistended. EXTREMITIES: No cyanosis, or edema. NEUROLOGICAL: Awake, alert, and oriented x 3. Non-focal. Hospital Course Acetaminophen levels were trended, initially 87.5, trending to 63.8->34.7->less than 2.0. No significant concerns on EKG trends. Patient became fully alert and oriented 4 prior to hospital discharge. CIWA scores were monitored, ranging 1- 2. Patient displayed no concerns for etoh withdrawal. Case management was consulted for assistance with alcohol detox/rehabilitation programs as an outpatient. Patient was encouraged to follow through with this and will be discharged with instructions given by case management. Pt Condition on Discharge: Stable Discharge Disposition: Discharge Home Discharge Instructions DIET: Follow Instructions for: As Tolerated, No Restrictions Activities you can perform: Regular-No Restrictions Follow up Referrals: PCP Follow-up - 1 Week New Medications: Amlodipine (Norvasc) 5 Mg Tab 5 MG PO DAILY, #30 TAB Desmond Thornton MD R2 Feb 06, 2017 14:32
== END 2017-02-06 13:21 | disposition home or self-care (01) | DRG 918 ==
LOC: NEPC 10:18 → INTOOBSV 12:57 → NEDA 12:57 → HCIS 16:55 → OBSVTOIN 02-05 15:13
PROVIDERS: ADMIT Family Medicine; ATTEND Family Medicine
DX: T42.4X2A Poisoning by benzodiazepines, intentional self-harm, initial encounter (principal); I10 Essential (primary) hypertension; F10.129 Alcohol abuse with intoxication, unspecified; T39.1X2A Poisoning by 4-Aminophenol derivatives, intentional self-harm, initial encounter; Y92.9 Unspecified place or not applicable; Y90.8 Blood alcohol level of 240 mg/100 ml or more; Z91.5 Personal history of self-harm; T51.0X2A Toxic effect of ethanol, intentional self-harm, initial encounter; R00.0 Tachycardia, unspecified; F43.21 Adjustment disorder with depressed mood; R10.9 Unspecified abdominal pain
CPT/HCPCS: 80048; 80053; 80307; 85025; 85610; 85730; 93005; 96360; J0132; J1650; J7030; J7060; J7070

== ENCOUNTER 2017-07-17 21:45 | Emergency (ER) | payer BC, OTHER ==
[~2017-07-17] VITALS: Ht 165.1 cm; Wt 85.0 kg
[~2017-07-17 21:45] MED LIST: AMLO5 PO
[2017-07-17 22:02] VITALS: BP 124/79; PULSE 106; RESP 20; TEMP 99.3; O2SAT 98
[2017-07-17 22:47] LABS: AUTOMATED NEUTROPHIL # 6.2 TH/MM3 (1.8-7.7); BASOPHIL # 0.1 TH/MM3 (0-0.2); BASOPHIL % 0.7 % (0.0-2.0); EOSINOPHIL # 0.1 TH/MM3 (0-0.4); EOSINOPHIL % 1.2 % (0.0-4.0); HEMATOCRIT 39.3 % (35.0-46.0); HEMOGLOBIN 12.9 GM/DL (11.6-15.3); LYMPH % 29.5 % (9.0-44.0); LYMPHOCYTE # 2.8 TH/MM3 (1.0-4.8); MEAN CELL VOLUME 79.1 FL (80.0-100.0); MEAN CORPUSCULAR HGB CONC 32.9 % (32.0-36.0); MONO % 4.5 % (0.0-8.0); MONOCYTE # 0.4 TH/MM3 (0-0.9); NEUT % 64.1 % (16.0-70.0); PLATELET COUNT 407 TH/MM3 (150-450); RED BLOOD COUNT 4.97 MIL/MM3 (4.00-5.30); RED CELL DISTRIBUTION WIDTH 19.8 % (11.6-17.2); WHITE BLOOD COUNT 9.6 TH/MM3 (4.0-11.0)
--- NOTE | 2017-07-17 22:48 | PD ---
HPI Chief Complaint: Alcohol/Drug Intoxication Time Seen by Provider: 22:30 Travel History International Travel<30 days: No Contact w/Intl Traveler<30days: No Traveled to known affect area: No History of Present Illness HPI 47-year-old white female alcoholic presents emergency department under a Parham act by PD. The patient has been contacted police advising them that the patient was becoming acutely confused, delusional, and threatening. The patient had made suicidal statements. She also had made homicidal statements regarding killing her . The patient admits to drinking up to 4 bottles of wine a day. She states that she is attempted to detox on multiple occasions. She was seen at [facility] this past week and was started on Librium. She is continue to drink. Patient has been seeing things that are not there. She is nauseous and vomiting at times. She denies any active plan on self-harm but had performed suicide gesture cutting to her left wrist with a butter knife. She has not had a tetanus shot over 5 years. Symptoms are severe. No alleviating factors. Exacerbated by her alcohol abuse [facility] Past Medical History Narrative Medical Anxiety, depression, chronic alcohol abuse, hypothyroidism, hypertension Anxiety: Yes Depression: Yes Cancer: No Cardiovascular Problems: No Diminished Hearing: No Endocrine: No Genitourinary: No Hypertension: Yes Immune Disorder: No Musculoskeletal: No Neurologic: No Psychiatric: Yes Reproductive: No Respiratory: No Tetanus Vaccination: > 5 Years ?: Not Menopausal: Yes : 6 Para: 5 Miscarriage: 0 : 1 Past Surgical History Surgical History: No Previous Surgery Other Surgery: No Social History Alcohol Use: Yes (Daily - 2 bottles of wine) Tobacco Use: No Substance Use: No Allergies-Medications (Allergen,Severity, Reaction): Coded Allergies: No Known Allergies (Unverified Allergy, Unknown, 07/17/17) Reported Meds & Prescriptions Reported Meds & Active Scripts Active Norvasc (Amlodipine Besylate) 5 Mg Tab 5 Mg PO DAILY Review of Systems General / Constitutional: No: Fever Eyes: No: Visual changes HENT: No: Headaches Cardiovascular: No: Chest Pain or Discomfort Respiratory: No: Shortness of Breath Gastrointestinal: Positive: Nausea, Vomiting (Last vomited yesterday.), No: Abdominal Pain Genitourinary: No: Dysuria Musculoskeletal: No: Pain Skin: No Rash Neurologic: Positive: Change in Mentation, No: Weakness Psychiatric: Positive: Depression, Suicidal Ideations, Disorder of Thought, Mood Disorder, Substance Abuse, Homicidal Ideation, No: Anxiety Endocrine: No: Polydipsia Hematologic/Lymphatic: No: Easy Bruising Physical Exam Narrative GENERAL: Well-nourished, well-developed patient. SKIN: Warm and dry. HEAD: Normocephalic and atraumatic. EYES: No scleral icterus. No injection or drainage. ENT: No nasal drainage noted. Mucous membranes pink. Airway patent. NECK: Supple, trachea midline. Moves head freely without obvious discomfort. CARDIOVASCULAR: Regular rate and rhythm without murmurs, gallops, or rubs. RESPIRATORY: Breath sounds equal bilaterally. No accessory muscle use. GASTROINTESTINAL: Abdomen soft, non-tender, nondistended. EXTREMITIES: No cyanosis or edema. BACK: Nontender without obvious deformity. No CVA tenderness. NEURO: Patient is alert and oriented. no sensorimotor deficits. Nonfocal. Normal speech. PSYCH: No delusions. No auditory or visual hallucinations. Data Data Last Documented VS Vital Signs Date Time Temp Pulse Resp B/P (MAP) Pulse Ox O2 Delivery O2 Flow Rate FiO2 07/17/17 22:02 99.3 106 20 124/79 (94) 98 Room Air Orders Orders Complete Blood Count With Diff (07/17/17 21:55) Comprehensive Metabolic Panel (07/17/17 21:55) Urinalysis - C+S If Indicated (07/17/17 21:55) Psych Screen (07/17/17 21:55) Drug Screen, Random Urine (07/17/17 21:55) Alcohol (Ethanol) (07/17/17 21:55) Ed Urine Pregnancytest Poc (07/17/17 21:59) Salicylates (Aspirin) (07/17/17 22:01) Tylenol (Acetaminophen) (07/17/17 21:55) Alcohol Withdrawal Asmt-Ciwa ONCE (07/17/17 22:49) Flumazenil Inj (Romazicon Inj) (07/17/17 23:00) Lorazepam (Ativan) (07/17/17 23:00) Lorazepam Inj (Ativan Inj) (07/17/17 23:00) Lorazepam (Ativan) (07/17/17 23:00) Lorazepam Inj (Ativan Inj) (07/17/17 23:00) Lorazepam Inj (Ativan Inj) (07/17/17 23:00) Lorazepam Inj (Ativan Inj) (07/17/17 23:00) Labs Laboratory Tests Test 07/17/17 22:15 07/17/17 22:35 White Blood Count 9.6 TH/MM3 Red Blood Count 4.97 MIL/MM3 Hemoglobin 12.9 GM/DL Hematocrit 39.3 % Mean Corpuscular Volume 79.1 FL Mean Corpuscular Hemoglobin 26.0 PG Mean Corpuscular Hemoglobin Concent 32.9 % Red Cell Distribution Width 19.8 % Platelet Count 407 TH/MM3 Mean Platelet Volume 7.0 FL Neutrophils (%) (Auto) 64.1 % Lymphocytes (%) (Auto) 29.5 % Monocytes (%) (Auto) 4.5 % Eosinophils (%) (Auto) 1.2 % Basophils (%) (Auto) 0.7 % Neutrophils # (Auto) 6.2 TH/MM3 Lymphocytes # (Auto) 2.8 TH/MM3 Monocytes # (Auto) 0.4 TH/MM3 Eosinophils # (Auto) 0.1 TH/MM3 Basophils # (Auto) 0.1 TH/MM3 CBC Comment DIFF FINAL Differential Comment Blood Urea Nitrogen 13 MG/DL Creatinine 0.83 MG/DL Random Glucose 89 MG/DL Total Protein 8.6 GM/DL Albumin 3.6 GM/DL Calcium Level 8.2 MG/DL Alkaline Phosphatase 77 U/L Aspartate Amino Transf (AST/SGOT) 24 U/L Alanine Aminotransferase (ALT/SGPT) 37 U/L Total Bilirubin 0.2 MG/DL Sodium Level 144 MEQ/L Potassium Level 3.7 MEQ/L Chloride Level 109 MEQ/L Carbon Dioxide Level 21.0 MEQ/L Anion Gap 14 MEQ/L Estimat Glomerular Filtration Rate 73 ML/MIN Salicylates Level LESS THAN 1.7 MG/DL Acetaminophen Level LESS THAN 2.0 MCG/ML Ethyl Alcohol Level 255 MG/DL Urine Color LIGHT-YELLOW Urine Turbidity HAZY Urine pH 5.5 Urine Specific [place] 1.012 Urine Protein NEG mg/dL Urine Glucose (UA) NEG mg/dL Urine Ketones NEG mg/dL Urine Occult Blood NEG Urine Nitrite NEG Urine Bilirubin NEG Urine Urobilinogen LESS THAN 2.0 MG/DL Urine Leukocyte Esterase NEG Urine RBC 1 /hpf Urine WBC 2 /hpf Urine Squamous Epithelial Cells 13 /hpf Urine Bacteria RARE /hpf Urine Hyaline Casts 12 /lpf Urine Granular Casts 2 /lpf Urine Mucus FEW /lpf Microscopic Urinalysis Comment CULT NOT INDICATED Urine Opiates Screen NEG Urine Barbiturates Screen NEG Urine Amphetamines Screen NEG Urine Benzodiazepines Screen POS Urine Cocaine Screen NEG Urine Cannabinoids Screen NEG MDM Medical Decision Making Medical Screen Exam Complete: Yes Emergency Medical Condition: Yes Medical Record Reviewed: Yes Interpretation(s) Laboratory Tests Test 07/17/17 22:15 07/17/17 22:35 White Blood Count 9.6 TH/MM3 Red Blood Count 4.97 MIL/MM3 Hemoglobin 12.9 GM/DL Hematocrit 39.3 % Mean Corpuscular Volume 79.1 FL Mean Corpuscular Hemoglobin 26.0 PG Mean Corpuscular Hemoglobin Concent 32.9 % Red Cell Distribution Width 19.8 % Platelet Count 407 TH/MM3 Mean Platelet Volume 7.0 FL Neutrophils (%) (Auto) 64.1 % Lymphocytes (%) (Auto) 29.5 % Monocytes (%) (Auto) 4.5 % Eosinophils (%) (Auto) 1.2 % Basophils (%) (Auto) 0.7 % Neutrophils # (Auto) 6.2 TH/MM3 Lymphocytes # (Auto) 2.8 TH/MM3 Monocytes # (Auto) 0.4 TH/MM3 Eosinophils # (Auto) 0.1 TH/MM3 Basophils # (Auto) 0.1 TH/MM3 CBC Comment DIFF FINAL Differential Comment Blood Urea Nitrogen 13 MG/DL Creatinine 0.83 MG/DL Random Glucose 89 MG/DL Total Protein 8.6 GM/DL Albumin 3.6 GM/DL Calcium Level 8.2 MG/DL Alkaline Phosphatase 77 U/L Aspartate Amino Transf (AST/SGOT) 24 U/L Alanine Aminotransferase (ALT/SGPT) 37 U/L Total Bilirubin 0.2 MG/DL Sodium Level 144 MEQ/L Potassium Level 3.7 MEQ/L Chloride Level 109 MEQ/L Carbon Dioxide Level 21.0 MEQ/L Anion Gap 14 MEQ/L Estimat Glomerular Filtration Rate 73 ML/MIN Salicylates Level LESS THAN 1.7 MG/DL Acetaminophen Level LESS THAN 2.0 MCG/ML Ethyl Alcohol Level 255 MG/DL Urine Color LIGHT-YELLOW Urine Turbidity HAZY Urine pH 5.5 Urine Specific [place] 1.012 Urine Protein NEG mg/dL Urine Glucose (UA) NEG mg/dL Urine Ketones NEG mg/dL Urine Occult Blood NEG Urine Nitrite NEG Urine Bilirubin NEG Urine Urobilinogen LESS THAN 2.0 MG/DL Urine Leukocyte Esterase NEG Urine RBC 1 /hpf Urine WBC 2 /hpf Urine Squamous Epithelial Cells 13 /hpf Urine Bacteria RARE /hpf Urine Hyaline Casts 12 /lpf Urine Granular Casts 2 /lpf Urine Mucus FEW /lpf Microscopic Urinalysis Comment CULT NOT INDICATED Urine Opiates Screen NEG Urine Barbiturates Screen NEG Urine Amphetamines Screen NEG Urine Benzodiazepines Screen POS Urine Cocaine Screen NEG Urine Cannabinoids Screen NEG Differential Diagnosis MDM: High Differential diagnoses: Schizophrenia, schizoaffective disorder, bipolar, anxiety, depression, adjustment reaction, mood disorder NOS, ODD, depressive disorder NOS, psychosis NOS, substance induced mood disorder, infection, electrolyte abnormality, malingering. Narrative Course Mental health screening discussed with the patient. Psychiatric screen ordered. The patient has been medically cleared. Diagnosis Primary Impression: Medical clearance for psychiatric admission Additional Impression: Chronic alcohol abuse Condition: Stable Cecil Haynes July 17, 2017 22:48
[2017-07-17] MEDS ORDERED: LORazepam 2 MG TAB PO PRN (23:00)
[2017-07-17] MEDS ORDERED: FLUMAZENIL 0.5 MG/5 ML VIAL IV PUSH PRN (23:00)
[2017-07-17] MEDS ORDERED: LORazepam 1 MG TAB PO PRN (23:00)
[2017-07-17] MEDS ORDERED: LORazepam 2 MG/ML VIAL IV PUSH PRN ×4 (23:00)
[2017-07-17 23:33] LABS: ALBUMIN 3.6 GM/DL (3.4-5.0); ALT (GPT) 37 U/L (10-53); AST (GOT) 24 U/L (15-37); BLOOD UREA NITROGEN 13 MG/DL (7-18); CALCIUM 8.2 MG/DL (8.5-10.1); CHLORIDE 109 MEQ/L (98-107); CREATININE 0.83 MG/DL (0.50-1.00); GLOMERULAR FILTRATION RATE 73 ML/MIN (>89); GLUCOSE,RANDOM 89 MG/DL (74-106); SODIUM (NA) 144 MEQ/L (136-145)
[2017-07-17 23:36] LABS: ALKALINE PHOSPHATASE 77 U/L (45-117); TOTAL BILIRUBIN ADULT 0.2 MG/DL (0.2-1.0); TOTAL PROTEIN 8.6 GM/DL (6.4-8.2)
[2017-07-17 23:38] LABS: ACETAMINOPHEN LESS THAN 2.0 MCG/ML (10.0-30.0)
[2017-07-17 23:43] LABS: BACTERIA, URINE RARE /hpf; BILIRUBIN, URINE NEG (NEG); BLOOD, URINE NEG (NEG); GLUCOSE,URINE NEG (NEG); HYALINE CAST, URINE 12 /lpf (RARE); KETONE, URINE NEG (NEG); MUCUS URINE FEW /lpf (OCC); NITRITE,URINE NEG (NEG); PH, URINE 5.5 (5.0-8.5); SQUAMOUS EPITHELIAL CELL URINE 13 /hpf (0-5); URINE COLOR LIGHT-YELLOW (YELLW/STRAW); URINE LEUKOCYTE ESTERASE NEG (NEG)
[2017-07-18 05:24] VITALS: BP 156/79; PULSE 105; RESP 18; O2SAT 100
[2017-07-18 18:16] VITALS: BP 132/82; PULSE 105; RESP 18; O2SAT 99
--- NOTE | 2017-07-18 18:18 | PD ---
Physical Exam Time Seen by Provider: 18:16 Narrative TREMAINE Garza has evaluated the patient, lifted the Parham act and cleared the patient for discharge. Data Data Last Documented VS Vital Signs Date Time Temp Pulse Resp B/P (MAP) Pulse Ox O2 Delivery O2 Flow Rate FiO2 07/18/17 05:24 105 18 156/79 (104) 100 Room Air 07/17/17 22:02 99.3 Orders Orders Complete Blood Count With Diff (07/17/17 21:55) Comprehensive Metabolic Panel (07/17/17 21:55) Urinalysis - C+S If Indicated (07/17/17 21:55) Psych Screen (07/17/17 21:55) Drug Screen, Random Urine (07/17/17 21:55) Alcohol (Ethanol) (07/17/17 21:55) Ed Urine Pregnancytest Poc (07/17/17 21:59) Salicylates (Aspirin) (07/17/17 22:01) Tylenol (Acetaminophen) (07/17/17 21:55) Alcohol Withdrawal Asmt-Ciwa ONCE (07/17/17 22:49) Flumazenil Inj (Romazicon Inj) (07/17/17 23:00) Lorazepam (Ativan) (07/17/17 23:00) Lorazepam Inj (Ativan Inj) (07/17/17 23:00) Lorazepam (Ativan) (07/17/17 23:00) Lorazepam Inj (Ativan Inj) (07/17/17 23:00) Lorazepam Inj (Ativan Inj) (07/17/17 23:00) Lorazepam Inj (Ativan Inj) (07/17/17 23:00) Diet Regular Basic (07/18/17 Breakfast) Diet Regular Basic (07/18/17 Lunch) Diet Regular Basic (07/18/17 Dinner) Labs Laboratory Tests Test 07/17/17 22:15 07/17/17 22:35 White Blood Count 9.6 TH/MM3 Red Blood Count 4.97 MIL/MM3 Hemoglobin 12.9 GM/DL Hematocrit 39.3 % Mean Corpuscular Volume 79.1 FL Mean Corpuscular Hemoglobin 26.0 PG Mean Corpuscular Hemoglobin Concent 32.9 % Red Cell Distribution Width 19.8 % Platelet Count 407 TH/MM3 Mean Platelet Volume 7.0 FL Neutrophils (%) (Auto) 64.1 % Lymphocytes (%) (Auto) 29.5 % Monocytes (%) (Auto) 4.5 % Eosinophils (%) (Auto) 1.2 % Basophils (%) (Auto) 0.7 % Neutrophils # (Auto) 6.2 TH/MM3 Lymphocytes # (Auto) 2.8 TH/MM3 Monocytes # (Auto) 0.4 TH/MM3 Eosinophils # (Auto) 0.1 TH/MM3 Basophils # (Auto) 0.1 TH/MM3 CBC Comment DIFF FINAL Differential Comment Blood Urea Nitrogen 13 MG/DL Creatinine 0.83 MG/DL Random Glucose 89 MG/DL Total Protein 8.6 GM/DL Albumin 3.6 GM/DL Calcium Level 8.2 MG/DL Alkaline Phosphatase 77 U/L Aspartate Amino Transf (AST/SGOT) 24 U/L Alanine Aminotransferase (ALT/SGPT) 37 U/L Total Bilirubin 0.2 MG/DL Sodium Level 144 MEQ/L Potassium Level 3.7 MEQ/L Chloride Level 109 MEQ/L Carbon Dioxide Level 21.0 MEQ/L Anion Gap 14 MEQ/L Estimat Glomerular Filtration Rate 73 ML/MIN Salicylates Level LESS THAN 1.7 MG/DL Acetaminophen Level LESS THAN 2.0 MCG/ML Ethyl Alcohol Level 255 MG/DL Urine Color LIGHT-YELLOW Urine Turbidity HAZY Urine pH 5.5 Urine Specific [place] 1.012 Urine Protein NEG mg/dL Urine Glucose (UA) NEG mg/dL Urine Ketones NEG mg/dL Urine Occult Blood NEG Urine Nitrite NEG Urine Bilirubin NEG Urine Urobilinogen LESS THAN 2.0 MG/DL Urine Leukocyte Esterase NEG Urine RBC 1 /hpf Urine WBC 2 /hpf Urine Squamous Epithelial Cells 13 /hpf Urine Bacteria RARE /hpf Urine Hyaline Casts 12 /lpf Urine Granular Casts 2 /lpf Urine Mucus FEW /lpf Microscopic Urinalysis Comment CULT NOT INDICATED Urine Opiates Screen NEG Urine Barbiturates Screen NEG Urine Amphetamines Screen NEG Urine Benzodiazepines Screen POS Urine Cocaine Screen NEG Urine Cannabinoids Screen NEG MDM Supervised Visit with SILVIA: No Narrative Course TREMAINE Garza has evaluated the patient, lifted the Parham act and cleared the patient for discharge. Patient contracts safety. Denies suicidal or homicidal ideations. Patient will be provided community resource packet to [facility] for follow-up. Has friends and family for support. Patient was medically cleared by alternate provider prior to psych screening. Patient has been evaluated by psychiatry and and is now cleared for discharge. Diagnosis Primary Impression: Chronic alcohol abuse Additional Impression: Alcohol-induced mood disorder Referrals: RYAN (Out patient) [facility] Primary Care Physician Psychiatrist Antonietta DAVIS [facility] Patient Instructions: Abuse of Alcohol (ED), Alcohol Dependence (ED), Alcohol Intoxication (ED), General Instructions Additional Instruction: Contract safety to your self and others Follow-up with psychiatry Follow-up with primary care provider Follow-up with David Benjamin/RYAN Return to the emergency department immediately with worsening of symptoms Med/Other Pt SpecificInfo: No Change to Meds, No Meds Exist/No RX given Disposition: 01 DISCHARGE HOME Condition: Stable Eliana Livingston July 18, 2017 18:18
--- NOTE | 2017-07-18 18:26 | PD ---
History of Present Illness Chief Complaint: Alcohol/Drug Intoxication Time Seen by Provider: 18:00 Travel History International Travel<30 Days: No Contact w/Intl Traveler<30days: No Known affected area: No Legal Status Legal Status: Parham Act Parham Act Signed By: Kuldeep Khalil History of Present Illness: Patient is for 47-year-old , female , with 5 children unemployed, with a long-term history of alcoholism placed under a [place] act by [facility] [employer]. Parham act states "has been drinking heavily made statements to her that she was going to strangle him tonight. When DOLLY made she was holding a butter knife in her hand. Ramila states she was going to cut herself but the knife was not sharp enough. Ramila stated she was going to shoot herself with a gun." Alcohol level on arrival was 255. UDS is positive for benzo, patient has been taking Librium prescribed by [facility]. Patient states that she has been to [facility] to address her alcoholism three times in the past two months. Her initial admission to [facility] for 7 days followed by 30 days of sobriety. She returned to [facility] after she relapsed for 5 additional days and was sober for 20 days. The third admission to [facility] resulted in her relapse and a visit to the Emergency Department at [facility] due to a Seizure. They placed her on Librium. On Mother's day ( this past Monday) she had a fight with her family and drank wine until became delusional. She recalls the incident with her . She states that she has been going to and has put off obtaining a sponsor due to the family's plan to move. Endorses no access to guns. Chart reviewed and patient discussed with OJRJE Nava. Patient is in [facility]. She is well kept and looks her stated age. Fund of knowledge is normal. Motor and gait normal. Speech normal for rate, tone and volume. Insight and Judgement intact. Patient is articulate and can identify why she keeps relapsing and what she needs to do to stay sober. Mood is euthymic and affect is calm. Denies SI/HI. Patient states she is committed to returning to [facility],going to AA meeting that she has already established and is open to [facility] if she has to wait for [facility] to see her again. Collateral: I attempted to call the , Griffin Scott at [phone] with no response. Patient is at low risk for self harm. She is remorseful regarding the incident with the butter knife and telling her that she was going to strangle him. She states, " I was delusional because I took Librium and then I drank a case of wine. I love my family and I am going to make a plan to stop my drinking." Will lift the Parham Act. Patient will call her for transportation home. She plans to check with the [facility] [address]. She is also going to contact [facility] and attend her AA meetings. Dx: Mood Disorder, Alcohol Induced. PFSH Past Medical History Anxiety: Yes Depression: Yes Cancer: No Cardiovascular Problems: No Diminished Hearing: No Endocrine: No Genitourinary: No Hypertension: Yes Immune Disorder: No Musculoskeletal: No Neurologic: No Psychiatric: Yes Reproductive: No Respiratory: No Tetanus Vaccination: > 5 Years ?: Not Menopausal: Yes : 6 Para: 5 Miscarriage: 0 : 1 Past Surgical History Surgical History: No Previous Surgery Other Surgery: No Psychiatric History Psychiatric History No past psychiatric history. Is seeing a counselor at [facility] to assist her with her alcoholism. Hx Psychiatric Treatment: HX OF ANXIETY. HAS BEEN SEEING A COUNSELOR IN [facility]. HX OF DEPRESSION History of Inpatient Treatment: Yes Social History Hx Alcohol Use: Yes (Daily - 2 bottles of wine) Hx Tobacco Use: No Hx Substance Use: Yes Substance Use Type: Alcohol Other Substances Used: Drinks wine and beer 4-5 glasses a day Hx of Substance Use Treatment: Yes Allergies-Medications (Allergen,Severity, Reaction): Coded Allergies: No Known Allergies (Unverified Allergy, Unknown, 07/17/17) Reported Meds & Prescriptions Reported Meds & Active Scripts Active Norvasc (Amlodipine Besylate) 5 Mg Tab 5 Mg PO DAILY Mental Status Examination Appearance: Appropriate Consciousness: Alert Orientation: x4 Motor Activity: Normal gait Speech: Unremarkable Language: Adequate Fund of Knowledge: Adequate Attention and Concentration: Adequate Memory: Unremarkable Mood: Appropriate Affect: Euthymic Thought Process & Associations: Intact Thought Content: Appropriate Hallucination Type: None Delusion Type: None Suicidal Ideation: No Suicidal Plan: No Suicidal Intention: No Homicidal Ideation: No Homicidal Plan: No Homicidal Intention: No Insight: Adequate Judgment: Adequate MDM Medical Decision Making Medical Record Reviewed: Yes Assessment/Plan Patient is a 47 y/o female who has long history of alcohol abuse. She has been to [facility] three times and has relapse. She was prescribed Librium after a seizure while in the hospital for treatment for the seizure. On Mother's Day she had a fight with her family and she combined Librium with wine. She remembers becoming delusional which lead to her taking a butter knife to her . She is currently alert and oriented, articulate and very remorseful. She denies any intent to harm others and has no access to weapons. She is committed to going to a treatment program, returning to [facility] [address] and attending AA meetings. Patient is at low risk of self harm or harm to others. Will lift Parham Act and review the discharge plan with the patient. Orders Orders Complete Blood Count With Diff (07/17/17 21:55) Comprehensive Metabolic Panel (07/17/17 21:55) Urinalysis - C+S If Indicated (07/17/17 21:55) Psych Screen (07/17/17 21:55) Drug Screen, Random Urine (07/17/17 21:55) Alcohol (Ethanol) (07/17/17 21:55) Ed Urine Pregnancytest Poc (07/17/17 21:59) Salicylates (Aspirin) (07/17/17 22:01) Tylenol (Acetaminophen) (07/17/17 21:55) Alcohol Withdrawal Asmt-Ciwa ONCE (07/17/17 22:49) Flumazenil Inj (Romazicon Inj) (07/17/17 23:00) Lorazepam (Ativan) (07/17/17 23:00) Lorazepam Inj (Ativan Inj) (07/17/17 23:00) Lorazepam (Ativan) (07/17/17 23:00) Lorazepam Inj (Ativan Inj) (07/17/17 23:00) Lorazepam Inj (Ativan Inj) (07/17/17 23:00) Lorazepam Inj (Ativan Inj) (07/17/17 23:00) Diet Regular Basic (07/18/17 Breakfast) Diet Regular Basic (07/18/17 Lunch) Diet Regular Basic (07/18/17 Dinner) Results Vital Signs Date Time Temp Pulse Resp B/P (MAP) Pulse Ox O2 Delivery O2 Flow Rate FiO2 07/18/17 05:24 105 18 156/79 (104) 100 Room Air 07/17/17 22:02 99.3 106 20 124/79 (94) 98 Room Air Laboratory Tests Test 07/17/17 22:15 07/17/17 22:35 White Blood Count 9.6 Red Blood Count 4.97 Hemoglobin 12.9 Hematocrit 39.3 Mean Corpuscular Volume 79.1 Mean Corpuscular Hemoglobin 26.0 Mean Corpuscular Hemoglobin Concent 32.9 Red Cell Distribution Width 19.8 Platelet Count 407 Mean Platelet Volume 7.0 Neutrophils (%) (Auto) 64.1 Lymphocytes (%) (Auto) 29.5 Monocytes (%) (Auto) 4.5 Eosinophils (%) (Auto) 1.2 Basophils (%) (Auto) 0.7 Neutrophils # (Auto) 6.2 Lymphocytes # (Auto) 2.8 Monocytes # (Auto) 0.4 Eosinophils # (Auto) 0.1 Basophils # (Auto) 0.1 CBC Comment DIFF FINAL Differential Comment Blood Urea Nitrogen 13 Creatinine 0.83 Random Glucose 89 Total Protein 8.6 Albumin 3.6 Calcium Level 8.2 Alkaline Phosphatase 77 Aspartate Amino Transf (AST/SGOT) 24 Alanine Aminotransferase (ALT/SGPT) 37 Total Bilirubin 0.2 Sodium Level 144 Potassium Level 3.7 Chloride Level 109 Carbon Dioxide Level 21.0 Anion Gap 14 Estimat Glomerular Filtration Rate 73 Salicylates Level LESS THAN 1.7 Acetaminophen Level LESS THAN 2.0 Ethyl Alcohol Level 255 Urine Color LIGHT-YELLOW Urine Turbidity HAZY Urine pH 5.5 Urine Specific [place] 1.012 Urine Protein NEG Urine Glucose (UA) NEG Urine Ketones NEG Urine Occult Blood NEG Urine Nitrite NEG Urine Bilirubin NEG Urine Urobilinogen LESS THAN 2.0 Urine Leukocyte Esterase NEG Urine RBC 1 Urine WBC 2 Urine Squamous Epithelial Cells 13 Urine Bacteria RARE Urine Hyaline Casts 12 Urine Granular Casts 2 Urine Mucus FEW Microscopic Urinalysis Comment CULT NOT INDICATED Urine Opiates Screen NEG Urine Barbiturates Screen NEG Urine Amphetamines Screen NEG Urine Benzodiazepines Screen POS Urine Cocaine Screen NEG Urine Cannabinoids Screen NEG Diagnosis Primary Impression: Alcohol-induced mood disorder Disposition: 01 DISCHARGE HOME Condition: Stable Kiera Dolan July 18, 2017 18:26
== END 2017-07-18 18:58 | disposition home or self-care (01) ==
LOC: NEPJ 21:45
DX: F10.24 Alcohol dependence with alcohol-induced mood disorder (principal); I10 Essential (primary) hypertension; Y90.8 Blood alcohol level of 240 mg/100 ml or more; Z79.899 Other long term (current) drug therapy
CPT/HCPCS: 80053; 80307; 81001; 84703; 85025; 99284